=== PATIENT | female | born 1955 | race Caucasian/White ===

== ENCOUNTER 2021-09-09 13:46 | Outpatient (CLI) | payer MEDICARE, OTHER ==
--- NOTE | 2021-09-12 13:42 | Mammography Report ---
BILATERAL DIGITAL SCREENING MAMMOGRAM 3D/2D: 09/09/2021 CLINICAL: Routine screening. No prior exams were available for comparison. The tissue of both breasts is predominantly fatty. No significant masses, calcifications, or other findings are seen in either breast. IMPRESSION: NEGATIVE There is no mammographic evidence of malignancy. A 1 year screening mammogram is recommended. This exam was interpreted at Station ID: [id number]. NOTE: For mammograms, a report in lay terms will be sent to the patient. Approximately 15% of breast malignancies will not be visualized mammographically. In the management of a palpable breast mass, a negative mammogram must not discourage biopsy of a clinically suspicious lesion. Electronically Signed By: Pierre Martínez M.D. aty/jerryrad:09/09/2021 14:58:36 ACR BI-RADS Category 1: Negative 3341F PARENCHYMAL PATTERN: (F) - The breast(s) demonstrate(s) diffuse fatty replacement. BI-RADS CATEGORY: (1) - 1 RECOMMENDATION: (ANNUAL) - Recommend routine annual screening mammography. [id number] 1 year screening LATERALITY: (B)
== END 2021-09-09 13:47 | disposition home or self-care (01) ==
LOC: DI 13:46
PROVIDERS: ATTEND Internal Medicine
DX: Z12.31 Encounter for screening mammogram for malignant neoplasm of breast (principal)

== ENCOUNTER 2022-07-25 16:44 | Outpatient (CLI) | payer MEDICARE ==
--- NOTE | 2022-07-26 11:34 | XRAY Report ---
PROCEDURE: Ankle 3 View RT INDICATIONS: RT ANKLE PAIN TECHNIQUE: 3 views of the ankle were acquired. COMPARISON: None FINDINGS: Bones: Tiny ossific density adjacent to the fibular tip. No dislocations. Ankle mortise is normally aligned. No suspicious bony lesions. Soft tissues: Possible minimal soft tissues swelling at the lateral malleolus. No tibiotalar joint e ffusion. Achilles tendon appears normal. IMPRESSION: Possible avulsion fracture at the tip of the fibula. Recommend correlation for point tenderness. Follow-up CT ankle or radiographs in 10-14 days could be considered. Reviewed by: Alexey Kaiser MD on 07/26/2022 10:33 AM ALEXANDER Approved by: Alexey Kaiser MD on 07/26/2022 10:33 AM ALEXANDER Station ID: [id number]
== END 2022-07-25 16:45 | disposition home or self-care (01) ==
LOC: DI 16:44
PROVIDERS: ATTEND Internal Medicine
DX: M25.571 Pain in right ankle and joints of right foot (principal)

== ENCOUNTER 2023-11-19 08:49 | Outpatient (CLI) | payer MEDICARE ==
--- NOTE | 2023-11-20 09:24 | Mammography Report ---
BILATERAL DIGITAL SCREENING MAMMOGRAM 3D/2D: 11/19/2023 CLINICAL: Routine screening. Comparison is made to exams dated: 09/09/2021 mammogram - [facility] and mammogram - [facility]. There are scattered areas of fibroglandular density in both breasts (category b / 25%-50% glandular t issue). No significant masses, calcifications, or other findings are seen in either breast. There has been no significant interval change. IMPRESSION: NEGATIVE There is no mammographic evidence of malignancy. A 1 year screening mammogram is recommended. Based on the Tyrer Cuzick model (a risk assessment model) the patient's lifetime risk is 3.7% and her 10 year risk is 2.1%. According to the ACR, ACS, and NCCN guidelines, an annual breast MRI exam sumi g with mammogram is recommended if the patient's lifetime risk is 20% or greater. This exam was interpreted at Station ID: [id number]. NOTE: For mammograms, a report in lay terms will be sent to the patient. Approximately 15% of breast malignancies will not be visualized mammographically. In the management of a palpable breast mass, a negative mammogram must not discourage biopsy of a clinically suspicious lesion. Electronically Signed By: Alexey dooley/connie:11/19/2023 18:19:33 ACR BI-RADS Category 1: Negative 3341F PARENCHYMAL PATTERN: (A) - The breast(s) demonstrate(s) scattered fibroglandular densities. BI-RADS CATEGORY: (1) - 1 Mammogram [id number] 1 year screening LATERALITY: (B)
== END 2023-11-19 08:50 | disposition home or self-care (01) ==
LOC: DI 08:49
PROVIDERS: ATTEND Nurse Practitioner Acute Care
DX: Z12.31 Encounter for screening mammogram for malignant neoplasm of breast (principal); R92.323 Mammographic fibroglandular density, bilateral breasts

== ENCOUNTER 2023-11-20 11:36 | Outpatient (CLI) | payer MEDICARE ==
[2023-11-20 11:46] LABS: BASOPHILS % (AUTO) 0.5 %; EOSINOPHILS # (AUTO) 0.1 10^3/uL (0.0-0.7); EOSINOPHILS % (AUTO) 0.7 %; HCT - HEMATOCRIT 39.5 % (37.0-47.0); HGB - HEMOGLOBIN 13.1 g/dL (12.0-16.0); LYMPHOCYTES # (AUTO) 2.3 10^3/uL (1.5-3.5); LYMPHOCYTES % (AUTO) 31.3 %; MEAN CORPUSCULAR HEMOGLOBIN 30.5 pg (27.0-31.0); MEAN CORPUSCULAR HGB CONC 33.2 g/dL (32.0-36.0); MEAN CORPUSCULAR VOLUME 91.9 fL (81.0-99.0); MONOCYTES # (AUTO) 0.6 10^3/uL (0.0-1.0); MONOCYTES % (AUTO) 8.3 %; NEUTROPHILS # (AUTO) 4.4 10^3/uL (1.5-6.6); NEUTROPHILS % (AUTO) 58.9 %; PLT - PLATELET COUNT 234 10^3/uL (130-450); RED CELL DISTRIBUTION WIDTH 12.7 % (12.0-15.0); WHITE BLOOD COUNT 7.5 x10^3/uL (4.8-10.8)
[2023-11-20 12:15] LABS: ALBUMIN 4.5 g/dL (3.2-5.5); ALBUMIN/GLOBULIN RATIO 1.7 (1.0-2.2); ALKALINE PHOSPHATASE 64 IU/L (42-121); ALT ALANINE AMINOTRANSFERASE 32 IU/L (10-60); AST ASPARTATE AMINOTRANSFERASE 25 IU/L (10-42); BILIRUBIN,TOTAL 0.4 mg/dL (0.2-1.0); BUN - BLOOD UREA NITROGEN 21 mg/dL (6-20); CALCIUM 9.4 mg/dL (8.5-10.3); CARBON DIOXIDE - CO2 26 mmol/L (21-32); CHLORIDE 105 mmol/L (101-111); CHOLESTEROL 265 mg/dL; GFR - MDRD 55 (>89); GLUCOSE 107 mg/dL (74-104); HDL CHOLESTEROL 87 mg/dL; LDL CHOLESTEROL,CALCULATED 153 mg/dL; LDL/HDL RATIO 1.8 (<4.4); POTASSIUM 4.5 mmol/L (3.5-4.5); SODIUM 139 mmol/L (135-145); TOTAL PROTEIN 7.2 g/dL (6.4-8.9); TRIGLYCERIDES 125 mg/dL (48-352); VLDL CHOLESTEROL 25 mg/dL
[2023-11-20 12:17] LABS: THYROID STIMULATING HORMONE 2.05 uIU/mL (0.34-5.60)
[2023-11-20 12:46] LABS: ESTIMATED AVERAGE GLUCOSE 120 mg/dL (70-100); HEMOGLOBIN A1c% 5.8 % (4.27-6.07)
== END 2023-11-20 11:37 | disposition home or self-care (01) ==
LOC: LAB 11:36
PROVIDERS: ATTEND Nurse Practitioner Acute Care
DX: Z13.228 Encounter for screening for other metabolic disorders (principal); Z13.220 Encounter for screening for lipoid disorders; Z13.1 Encounter for screening for diabetes mellitus; Z13.0 Encounter for screening for diseases of the blood and blood-forming organs and certain disorders involving the immune mechanism; Z13.29 Encounter for screening for other suspected endocrine disorder
CPT/HCPCS: 36415; 80053; 80061; 83036; 83721; 84443; 85025

== ENCOUNTER 2024-01-08 10:52 | Outpatient (CLI) | payer MEDICARE ==
--- NOTE | 2024-01-08 18:36 | CT Report ---
PROCEDURE: CT heart coronary calcium scoring without contrast TECHNIQUE: MDCT non-contrast cardiac gated images were obtained from the patria through the inferior margin of the heart. Calcium score was obtained by post-processing with external software. Automated exposure control was used to reduce patient radiation dose. INDICATION: CAD screening, low or intermediate risk COMPARISON: None available. FINDINGS: Image quality: Excellent Agatston method: Total calcium score: 196.2 L main: 32.8 LAD: 1.7 LCX: 21.8 RCA: 140 Heart findings: Mitral annular calcifications: No significant calcifications. Aortic valve: No significant valvular calcifications. Chambers: No significant enlargement on this non-dynamic study. Pericardium: No effusion. Other findings (note the chest is incompletely imaged on this limited non-contrast study): Lungs and pleura: No pleural effusion. No actionable lung nodules. Mild apparent dependent atelectas is can be seen. Mediastinum: No pathologic lymphadenopathy. Upper abdomen: Partially seen, unremarkable. Bones: No acute or suspicious abnormality. IMPRESSION: Moderate coronary artery calcification. Incidentals: None significant. Coronary artery calcium scores have been identified as an independent risk factor for future acute co ronary syndromes and correlate with the quantity of coronary atherosclerotic plaque. However, they do not correlate directly with the degree of stenosis. A low score does not exclude a significant coron nevin artery stenosis. Risk of future coronary events should be assessed with individual patient risk factors and medical hi story. Consider correlation with risk percentiles using the FROST (Multi-Ethnic Study of Atheroscleros is) calculator. CAC-DRS Categories: A0: 0, very low risk, consider repeat coronary calcium study every 3-7 years for surveillance. A1: 1-99, mildly increased risk, consider moderate-intensity statin A2: 100-299: moderately increased risk, consider moderate to high-intensity statin + ASA 81mg A3: >300: moderately to severely increased risk, consider high-intensity statin + ASA 81mg Reviewed by: Gus De La Torre MD on 01/08/2024 5:35 PM AKDT Approved by: Gus De La Torre MD on 01/08/2024 5:35 PM AKDT Station ID: [id number]
== END 2024-01-08 10:53 | disposition home or self-care (01) ==
LOC: DI 10:52
PROVIDERS: ATTEND Nurse Practitioner Acute Care
DX: Z13.6 Encounter for screening for cardiovascular disorders (principal); I25.10 Atherosclerotic heart disease of native coronary artery without angina pectoris

== ENCOUNTER 2024-06-18 10:01 | Outpatient (CLI) | payer MEDICARE ==
[2024-06-18 10:35] LABS: ALBUMIN 4.5 g/dL (3.2-5.5); ALBUMIN/GLOBULIN RATIO 2.1 (1.0-2.2); ALKALINE PHOSPHATASE 58 IU/L (42-121); ALT ALANINE AMINOTRANSFERASE 17 IU/L (10-60); AST ASPARTATE AMINOTRANSFERASE 20 IU/L (10-42); BILIRUBIN,TOTAL 0.5 mg/dL (0.2-1.0); BUN - BLOOD UREA NITROGEN 22 mg/dL (6-20); CALCIUM 9.3 mg/dL (8.5-10.3); CARBON DIOXIDE - CO2 29 mmol/L (21-32); CHLORIDE 102 mmol/L (101-111); CHOL/HDL RATIO 3.5 (<4.4); CHOLESTEROL 254 mg/dL; GFR - MDRD 55 (>89); GLUCOSE 105 mg/dL (74-104); HDL CHOLESTEROL 73 mg/dL; LDL CHOLESTEROL,CALCULATED 161 mg/dL; LDL/HDL RATIO 2.2 (<4.4); POTASSIUM 4.3 mmol/L (3.5-4.5); SODIUM 136 mmol/L (135-145); TOTAL PROTEIN 6.6 g/dL (6.4-8.9); TRIGLYCERIDES 101 mg/dL; VLDL CHOLESTEROL 20 mg/dL
== END 2024-06-18 10:02 | disposition home or self-care (01) ==
LOC: LAB 10:01
PROVIDERS: ATTEND Nurse Practitioner Acute Care
DX: E78.5 Hyperlipidemia, unspecified (principal); R73.03 Prediabetes; R94.4 Abnormal results of kidney function studies
CPT/HCPCS: 36415; 80053; 80061; 83721